=== PATIENT | male | born 1995 | race African-American/Black ===

== ENCOUNTER 2020-04-08 08:21 | Emergency (ER) | payer MEDICAID ==
[~2020-04-08] VITALS: Ht 190.5 cm; Wt 67.5 kg
[2020-04-08 08:32] VITALS: BP 134/76
[2020-04-08] MEDS ORDERED: PREDNISONE 20MG TABLET PO ONE (09:00)
[2020-04-08] MEDS ORDERED: DIPHENHYDRAMINE 25MG CAPSULE PO ONE (09:00)
== END 2020-04-08 09:23 | disposition home or self-care (01) ==
LOC: ER 08:21
DX: R21 Rash and other nonspecific skin eruption (principal); Z98.890 Other specified postprocedural states
CPT/HCPCS: 99283; J7512; Q0163

== ENCOUNTER 2022-01-23 10:34 | Emergency (ER) | payer MEDICAID ==
[~2022-01-23] VITALS: Ht 172.7 cm; Wt 70.0 kg
[2022-01-23] MEDS ORDERED: FAMOTIDINE 20MG TABLET PO ONE (12:00)
[2022-01-23] MEDS ORDERED: ONDANSETRON 4MG ODT PO ONE (12:00)
[2022-01-23 12:28] LABS: BASOPHILS % 0.6 % (0.0-2.0); EOSINOPHILS % 0.7 % (0.0-5.0); HEMATOCRIT. 43.2 % (42.0-52.0); HEMOGLOBIN. 14.1 g/dL (14.0-18.0); LYMPHOCYTES % 11.6 % (20.0-50.0); MEAN CORPUSCULAR HEMOGLOBIN 24.5 pg (28.0-32.0); MEAN CORPUSCULAR VOLUME 74.8 fL (80.0-94.0); MEAN PLATELET VOLUME 7.8 fl (7.4-10.4); MONOCYTES % 7.9 % (2.0-8.0); NEUTROPHILS % 79.2 % (40.0-76.0); PLATELET 249 x1000/uL (130-400); RED BLOOD CELL COUNT 5.78 mill/uL (4.7-6.1); RED CELL DISTRIBUTION WIDTH 13.9 % (11.6-14.6)
[2022-01-23 12:35] LABS: CHLORIDE 105 mEq/L (98-107)
[2022-01-23] MEDS ORDERED: MAG-55 MT (15:25)
[2022-01-23 15:38] VITALS: BP 123/72
== END 2022-01-23 15:44 | disposition home or self-care (01) ==
LOC: ER 10:34
DX: K52.9 Noninfective gastroenteritis and colitis, unspecified (principal)
CPT/HCPCS: 36415; 80053; 83690; 85025; 93005; 99284; Q0162

== ENCOUNTER 2022-05-09 12:02 | Emergency (ER) | payer MEDICAID ==
[~2022-05-09] VITALS: Ht 182.9 cm; Wt 73.0 kg
[~2022-05-09 12:02] MED LIST: MAG-55 MT
[2022-05-09 12:57] LABS: EOSINOPHILS % 0.8 % (0.0-5.0); HEMATOCRIT. 44.1 % (42.0-52.0); HEMOGLOBIN. 14.3 g/dL (14.0-18.0); MEAN CORPUSCULAR VOLUME 74.1 fL (80.0-94.0); MEAN PLATELET VOLUME 8.5 fl (7.4-10.4); MONOCYTES % 9.7 % (2.0-8.0); NEUTROPHILS % 51.5 % (40.0-76.0); PLATELET 229 x1000/uL (130-400); RED BLOOD CELL COUNT 5.94 mill/uL (4.7-6.1); RED CELL DISTRIBUTION WIDTH 14.4 % (11.6-14.6)
[2022-05-09 13:00] LABS: CHLORIDE 103 mEq/L (98-107)
[2022-05-09 13:09] LABS: ETHANOL BLOOD < 10 mg/dL
[2022-05-09 13:23] VITALS: BP 110/64
== END 2022-05-09 13:25 | disposition left against medical advice (07) ==
LOC: ER 12:15
DX: G40.909 Epilepsy, unspecified, not intractable, without status epilepticus (principal); F12.10 Cannabis abuse, uncomplicated; F17.210 Nicotine dependence, cigarettes, uncomplicated
CPT/HCPCS: 36415; 80053; 80185; 80320; 85025; 99283; G0480

== ENCOUNTER 2024-04-25 07:01 | Emergency (ER) | payer MEDICAID ==
[~2024-04-25] VITALS: Ht 190.5 cm; Wt 75.0 kg
[2024-04-25 07:02] VITALS: O2SAT 100
[2024-04-25] MEDS: IBUPROFEN 600MG TABLET PO ONE (07:20)
[2024-04-25 08:49] VITALS: BP 132/84; PULSE 80; RESP 16; TEMP 97.8
== END 2024-04-25 08:51 | disposition home or self-care (01) ==
LOC: ER 07:33
DX: S42.401A Unspecified fracture of lower end of right humerus, initial encounter for closed fracture (principal); F12.10 Cannabis abuse, uncomplicated; Z86.59 Personal history of other mental and behavioral disorders; X58.XXXA Exposure to other specified factors, initial encounter; Y93.89 Activity, other specified; Y92.89 Other specified places as the place of occurrence of the external cause; Y99.8 Other external cause status
CPT/HCPCS: 29105; 73070; 73110; 99284; A4565

== ENCOUNTER 2024-10-23 09:17 | Emergency (ER) | payer MEDICAID ==
[~2024-10-23] VITALS: Ht 185.4 cm; Wt 79.0 kg
[2024-10-23 09:18] VITALS: O2SAT 98
[2024-10-23 10:26] VITALS: TEMP 97.6
[2024-10-23] MEDS: ACETAMINOPHEN 325MG TABLET PO ONE (10:26)
[2024-10-23 10:32] VITALS: BP 104/72; PULSE 86; RESP 16
[2024-10-23] MEDS: KETOROLAC 30MG/ML VIAL IM ONE (10:32)
[2024-10-23] MEDS: ONDANSETRON 4MG ODT PO ONE (10:43)
[2024-10-23] MEDS ORDERED: TOPUD MT (11:30)
[2024-10-23] MEDS ORDERED: ONDA4TAB50 MT (11:30)
== END 2024-10-23 11:45 | disposition home or self-care (01) ==
LOC: ER 09:17
DX: B34.9 Viral infection, unspecified (principal); F12.10 Cannabis abuse, uncomplicated; F41.9 Anxiety disorder, unspecified; Z20.822 Contact with and (suspected) exposure to COVID-19; Z86.59 Personal history of other mental and behavioral disorders
CPT/HCPCS: 87804 ×2; 71045; 96372; 99284; 87426; J1885; Z7610